=== PATIENT | female | born 1960 | race Caucasian/White ===

== ENCOUNTER 2022-12-20 20:19 | Emergency (ER) | payer OTHER ==
[2022-12-20 20:56] VITALS: BP 143/75; PULSE 60
[2022-12-20 21:00] LABS: ESTIMATED GFR 73 mL/min (>60)
== END 2022-12-20 21:45 | disposition home or self-care (01) ==
LOC: FB.ED 20:19
DX: R07.81 Pleurodynia (principal); I10 Essential (primary) hypertension
CPT/HCPCS: 36415; 80053; 84484; 85025; 93005; 99284